=== PATIENT | female | born 1980 ===

== ENCOUNTER 2017-09-13 19:12 | Emergency (ER) | payer SELFPAY ==
[2017-09-13 19:40] VITALS: BP 103/57; PULSE 70; RESP 16; TEMP 99.7; O2SAT 100
--- NOTE | 2017-09-13 20:13 | C.PDOC ---
History Of Present Illness 37 yr old female presents to the ER with complaints of LUQ pain since morning. Patient states she missed work due to it. Denies fever, chills, nausea, vomiting , diarrhea, weakness or numbness. Time Seen by Provider: 09/13/17 20:07 Chief Complaint (Nursing): Abdominal Pain History Per: Patient History/Exam Limitations: no limitations Onset/Duration Of Symptoms: Sudden Onset (since morning) Current Symptoms Are (Timing): Still Present Location Of Pain/Discomfort: LUQ Past Medical History Reviewed: Historical Data, Nursing Documentation, Vital Signs Vital Signs: Last Vital Signs Temp 99.7 F H 09/13/17 19:35 Pulse 70 09/13/17 19:35 Resp 16 09/13/17 19:35 BP 103/57 L 09/13/17 19:35 Pulse Ox 100 09/13/17 20:50 Family History: States: No Known Family Hx - Social History Hx Alcohol Use: Yes Hx Substance Use: No - Immunization History Hx Influenza Vaccination: No Hx Pneumococcal Vaccination: No Review Of Systems Except As Marked, All Systems Reviewed And Found Negative. Constitutional: Negative for: Fever, Chills Gastrointestinal: Positive for: Abdominal Pain (LUQ). Negative for: Nausea, Vomiting, Diarrhea Neurological: Negative for: Weakness, Numbness Physical Exam - Physical Exam Appears: Non-toxic, No Acute Distress Skin: Warm, Dry, No Rash Oral Mucosa: Moist Chest: Symmetrical, No Tenderness Cardiovascular: Rhythm Regular, No Murmur Respiratory: Normal Breath Sounds, No Rales, No Rhonchi, No Stridor, No Wheezing Gastrointestinal/Abdominal: Soft, Tenderness (LUQ tenderness), No Guarding, No Rebound Extremity: Normal ROM Neurological/Psych: Oriented x3, Normal Speech ED Course And Treatment O2 Sat by Pulse Oximetry: 100 (RA) Pulse Ox Interpretation: Normal Progress Note: Patient is refusing blood work. States she has to take care of her children. Requesting a work note. HCG was tested positive. Patient still refusing blood work any work up. Medical Decision Making Medical Decision Making: PLAN: * HCG * Urinalysis * Pepcid PO pt refuses labs us after told ucg neg. explained risk of ectopic. signs ama Disposition - Disposition Referrals: [facility] [Outside] [facility] [Outside] Celsa Byers MD [Staff Provider] - Disposition: AGAINST MEDICAL ADVICE Disposition Time: 08:00 Condition: UNKNOWN Additional Instructions: you are leaving without any lab evaluation or imaging. you are welcome to return to any er at any point with any concern. please see your obgyn doctor. Instructions: (ED), Acute Abdominal Pain (DC), Against Medical Advice (ED) Forms: [employer] [facility] ([place]), Work Excuse - Clinical Impression Clinical Impression: Abdominal pain, Left against medical advice - Scribe Statement The provider has reviewed the documentation as recorded by the Annaibsarina Clinton Provider Attestation: All medical record entries made by the Annaibe were at my direction and personally dictated by me. I have reviewed the chart and agree that the record accurately reflects my personal performance of the history, physical exam, medical decision making, and the department course for this patient. I have also personally directed, reviewed, and agree with the discharge instructions and disposition.
[2017-09-13 20:33] LABS: HCG,QUALITATIVE URINE POSITIVE (NEGATIVE)
[2017-09-13 20:43] LABS: SQUAMOUS EPITHIAL 7 /hpf (0-5); URINE BACTERIA OCC (<OCC); URINE BILIRUBIN NEGATIVE (NEGATIVE); URINE BLOOD 2+ (NEGATIVE); URINE CLARITY Clear (Clear); URINE COLOR Yellow (YELLOW); URINE GLUCOSE (UA) NORMAL (Normal); URINE LEUKOCYTE ESTERASE NEG Leu/uL (Negative); URINE NITRATE NEGATIVE (NEGATIVE); URINE PROTEIN NEGATIVE (NEGATIVE)
== END 2017-09-13 21:05 | disposition left against medical advice (07) ==
LOC: C.ER 19:12
DX: R10.12 Left upper quadrant pain (principal)